=== PATIENT | male | born 1965 | race Caucasian/White ===

== ENCOUNTER 2016-12-03 09:56 | Emergency (ER) | payer OTHER ==
[~2016-12-03] VITALS: Ht 175.3 cm; Wt 54.4 kg
[~2016-12-03 09:56] MED LIST: AMLODIPINE BESY10 M1 PO; ASPIRIN EC81 M1 PO; ATORVASTATIN CA40 MG PO; CARTIA XT120 M1 PO; ECOTRIN81 MG PO; PERCOCET 325 MG1 TA2 PO; PERCOCET 5-3251 EACH PO
--- NOTE | 2016-12-03 10:06 | ED GENERAL ADULT ---
History of Present Illness General Chief Complaint: Abdominal Pain/Flank Pain Stated Complaint: ABD PAIN Source: patient Exam Limitations: no limitations Vital Signs & Intake/Output Vital Signs & Intake/Output Vital Signs Date Time Temp Pulse Resp B/P Pulse O2 O2 Flow FiO2 Ox Delivery Rate 12/03 1204 97.0 76 18 129/83 96 Room Air 12/03 0959 97.5 97 20 163/81 96 Room Air Allergies Coded Allergies: pineapple (HIVES 12/03/16) Uncoded Allergies: contrast dye (Mild, rash 12/03/16) Reconcile Medications Amlodipine Besylate (Amlodipine) 10 MG TAB 1 TAB PO DAILY BP (Reported) Aspirin (Ecotrin*) 81 MG TABLET.DR 1 TAB PO DAILY HEART HEALTH (Reported) Atorvastatin Calcium (Lipitor) 40 MG TAB 1 TAB PO DAILY CHOLESTEROL (Reported ) Diltiazem Hydrochloride (Diltiazem HCl) 120 MG C24 1 CAP PO DAILY HEART ( Reported) Gabapentin 300 MG CAPSULE 2 CAP PO BID PAIN (Reported) Gabapentin (Neurontin) 300 MG CAPSULE 1 CAP PO 1300 PAIN (Reported) Hydroxyzine Pamoate (Vistaril) 25 MG CAPSULE 1 CAP PO TID PRN RASH Lactobacillus Rhamnosus GG (Culturelle) 10 BILLION CELL CAPSULE 1 CAP PO DAILY GI (Reported) Oxycodone HCl/Acetaminophen (Percocet 5-325 MG Tablet) 5 MG-325 MG TABLET 1 TAB PO BID PRN PAIN Triage Note: PT TO ED FOR ABD PAIN. PT HAD AN OUT PATIENT CAT SCAN YESTERDAY FOR HIS ABD PAIN. PT WAS CALLED BY DR BIANCHI LAST NIGHT AND TOLD TO COME TO ED FOR ADMISSION FOR "TWISTED INTESTINE". PT WAS UNABLE TO COME TO ED LAST NIGHT. DENIES N/V/D. PT TOOK A PERCOCET AROUND 0600 THIS AM. Triage Nurses Notes Reviewed? yes Onset: Abrupt Duration: week(s): Timing: recent history HPI: 12/03/16 51-year-old male presents to the emergency department complaining of lower abdominal pain that has been ongoing for weeks. He says he's had the pain since his vascular bypass surgery. He takes Percocet for the pain. He was seen and evaluated by his primary care doctor or outpatient CT scan was done the patient was told to return emergently to the emergency department, as the CT results were shown below. The onset of the symptoms were abrupt, the duration has been for weeks, the severity is significant as his symptoms required him to come to the emergency department for care IMPRESSION: 1. 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 2. Small right renal calculus no obstruction. 3. 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 Clinical correlation and surgical consultation is recommended. If the patient's pain is worsening, patient should be further evaluated the emergency department. 4. Postoperative changes as noted. Results and recommendation were discussed with Dr Blanco at 1630 hrs on 12/02/2016. It was ascertained that the content and urgency of the report was understood at the time of direct communication. DICTATED BY: RIC SCHWAB MD DATE/TIME DICTATED:12/02/161600 MIDDLEWARE ADMINISTRATOR:MOLLY DATE/TIME TRANSCRIBED:12/02/161600 CONFIDENTIAL, DO NOT COPY WITHOUT APPROPRIATE AUTHORIZATION. <Electronically signed in Other Vendor System> SIGNED BY: RIC SCHWAB MD 163 Surgical consultation was requested. Past History Travel History Traveled to [place] past 21 day No Medical History Any Pertinent Medical History? 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 Surgical History Surgical History: low back Psychosocial History What is your primary language Bermudian Tobacco Use: Current Daily Use Daily Tobacco Use Amount/Type: => 5 Cigarettes daily ETOH Use: denies use Illicit Drug Use: denies illicit drug use Family History Hx Contributory? No Review of Systems Review of Systems Constitutional: Denies: fever. EENTM: Denies: visual changes. Respiratory: Denies: short of breath. Cardiovascular: Denies: chest pain. GI: Reports: abdominal pain. Genitourinary: Reports: no symptoms. Musculoskeletal: Reports: see HPI. Skin: Denies: rash. Neurological/Psychological: Reports: no symptoms. Hematologic/Endocrine: Reports: no symptoms. Physical Exam Physical Exam General Appearance: alert, awake, anxious, mild distress Head: atraumatic, normal appearance Eyes: Bilateral: normal appearance, PERRL, EOMI. Ears, Nose, Throat: normal pharynx, normal ENT inspection Neck: normal inspection, supple, full range of motion Respiratory: normal breath sounds, chest non-tender, no respiratory distress Cardiovascular: regular rate/rhythm Peripheral Pulses: 4+ radial (R), 4+ radial (L) Gastrointestinal: soft, non-tender Back: normal range of motion Extremities: normal inspection, normal range of motion, no edema Neurologic/Psych: no motor/sensory deficits, awake, alert, oriented x 3 Skin: intact, normal color, warm/dry Core Measures ACS in differential dx? No CVA/TIA Diagnosis: No Severe Sepsis Present: No Septic Shock Present: No Progress Differential Diagnoses I considered the following diagnoses in my evaluation of the patient: [Volvulus, intestinal obstruction, ischemic colitis] Plan of Care: Orders Procedure Date/time Status LIPASE 12/03 1058 Complete COMPREHENSIVE METABOLIC PANEL 12/03 1058 Complete CBC WITHOUT DIFFERENTIAL 12/03 1058 Complete AMYLASE 12/03 1058 Complete Laboratory Tests 12/03/16 1111: Anion Gap 8, Estimated GFR > 60, BUN/Creatinine Ratio 15.0, Glucose 87, Calcium 9.4, Total Bilirubin 1.9 H, AST 26, ALT 33, Alkaline Phosphatase 104, Total Protein 6.8, Albumin 4.2, Globulin 2.6, Albumin/Globulin Ratio 1.6, Amylase 48, Lipase 62, CBC w Diff MAN DIFF ORDERED, RBC 4.42 L, MCV 93.6, MCH 31.6 H, RDW 14.9 H, MPV 7.6, Gran % 89.6 H, Lymphocytes % 4.9 L, Monocytes % 2.4, Eosinophils % 2.9, Basophils % 0.2, Absolute Granulocytes 12.4 H, Absolute Lymphocytes 0.7 L, Absolute Monocytes 0.3, Absolute Eosinophils 0.4, Absolute Basophils 0, Platelet Estimate VERIFIED BY SMEAR, Anisocytosis 1+, PUBS MCHC 33.7 Initial ED EKG: none Departure Departure Disposition: HOME OR SELF CARE Condition: Stable Clinical Impression Primary Impression: Abdominal pain Referrals: MAYTE BIANCHI MD (PCP/Family) Departure Forms: Customer Survey General Discharge Information Prescriptions: Current Visit Scripts Hydroxyzine Pamoate (Vistaril) 1 CAP PO TID PRN RASH #20 CAP Comments 12/03/16 The patient was seen and evaluated by surgery. Abdomen soft and benign. Volvulus excluded clinically, patient is having bowel movements, no vomiting. Critical Care Note Critical Care Note Critical Care Time: non-applicable
[2016-12-03] MEDS ORDERED: CULTURELLE1 EACH PO (10:18)
[2016-12-03] MEDS ORDERED: GABAPENTIN300 M2 PO (10:19)
[2016-12-03] MEDS ORDERED: NEURONTIN300 M1 PO (10:19)
[2016-12-03 11:24] LABS: ABSOLUTE BASOPHIL COUNT 0 /CUMM (0.0-0.2); ABSOLUTE EOSINOPHIL COUNT 0.4 /CUMM (0.0-0.7); ABSOLUTE GRANULOCYTE CT 12.4 /CUMM (1.4-6.5); ABSOLUTE LYMPH COUNT 0.7 /CUMM (1.2-3.4); ABSOLUTE MONOCYTE COUNT 0.3 /CUMM (0.10-0.60); BASOPHIL % 0.2 % (0.0-2.0); EOSINOPHIL % 2.9 % (0-5); GRANULOCYTE % 89.6 % (42.2-75.2); HEMATOCRIT 41.4 % (42-52); MEAN CORPUSCULAR HGB 31.6 PG (27.0-31.0); MEAN CORPUSCULAR HGB CONC 33.7 G/DL (33.0-37.0); MEAN CORPUSCULAR VOLUME 93.6 FL (80.0-94.0); MEAN PLATELET VOLUME 7.6 FL (7.4-10.4); PLATELET COUNT 242 /CUMM (130-400); RBC DISTRIBUTION WIDTH 14.9 % (11.5-14.5); RED BLOOD CELL CT 4.42 /CUMM (4.70-6.10); WHITE BLOOD CELL COUNT 13.8 /CUMM (4.8-10.8)
[2016-12-03 12:04] VITALS: BP 129/83
--- NOTE | 2016-12-03 12:51 | Cons- General Surgery ---
General Information and HPI Consulting Request Date of Consult: 12/03/16 Requested By: md Jaquan History of Present Illness: Aked to evaluate patient with "possible voluvulus" on CT abdomen performed as outpt. Patient describes lack of appetite since his aortobifemoral bypass at [facility] 03/2016. Mild abdominal pain after meals, mostly left mid abdomen. No nausea or vomiting. Normal bowel function. No f/c/s. Main c/o is that of chronic back pain. Outpt CT angio of abdomen ordered by primary care physician two days ago. The results showed no vascular occlusive disease of the viscera, but concern for 'swirling' of the mesentery in low abd/pelvis. Patient denies active abdominal pain. Also c/o red rash over abdomen and back since IV contrast given for CT. Allergies/Medications Allergies: Coded Allergies: pineapple (HIVES 12/03/16) Uncoded Allergies: contrast dye (Mild, rash 12/03/16) Home Med List: Amlodipine Besylate (Amlodipine) 10 MG TAB 1 TAB PO DAILY BP (Reported) Aspirin (Ecotrin*) 81 MG TABLET.DR 1 TAB PO DAILY HEART HEALTH (Reported) Atorvastatin Calcium (Lipitor) 40 MG TAB 1 TAB PO DAILY CHOLESTEROL (Reported ) Diltiazem Hydrochloride (Diltiazem HCl) 120 MG C24 1 CAP PO DAILY HEART ( Reported) Gabapentin 300 MG CAPSULE 2 CAP PO BID PAIN (Reported) Gabapentin (Neurontin) 300 MG CAPSULE 1 CAP PO 1300 PAIN (Reported) Lactobacillus Rhamnosus GG (Culturelle) 10 BILLION CELL CAPSULE 1 CAP PO DAILY GI (Reported) Oxycodone HCl/Acetaminophen (Percocet 5-325 MG Tablet) 5 MG-325 MG TABLET 1 TAB PO BID PRN PAIN Past History Medical History Neurological: NONE EENT: NONE Cardiovascular: hypertension, hyperlipidemia, PVD Respiratory: NONE Gastrointestinal: NONE Hepatic: NONE Renal: NONE Musculoskeletal: NONE Psychiatric: NONE Endocrine: NONE Blood Disorders: NONE Cancer(s): 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 Surgical History Pertinent Surgical History: laminectomy, Aorto-Bifemoral bypass Psychosocial History Smoking Status: Current Everyday Smoker ETOH Use: denies use Illicit Drug Use: denies illicit drug use Employment History Retired? no Review of Systems Review of Systems: no f/c/s. mild postprandial abd pain per hpi. low back pain/instability. remainder 12pts neg. Exam & Diagnostic Data Vital Signs and I&O Vital Signs Date Time Temp Pulse Resp B/P Pulse O2 O2 Flow FiO2 Ox Delivery Rate 12/03 1204 97.0 76 18 129/83 96 Room Air 12/03 0959 97.5 97 20 163/81 96 Room Air Intake & Output 12/03 1600 12/03 0800 12/03 0000 12/02 1600 12/02 0800 12/02 0000 Intake Total 1000 Output Total Balance 1000 Intake, IV 1000 Patient 120 lb Weight Physical Exam: Gen: thin. smells of cigarrette smoke. nad. heent; anicteric, mmm, eomi chest; nt, normal excursion/effort abd; flat, nt. nd. small right inguinal hernia, reducible. ext; palp pulses. no edema. inguinal adenopathy Last 24 Hours of Labs: Laboratory Tests 12/03 1111 Chemistry Sodium (137 - 145 mmol/L) 135 L Potassium (3.5 - 5.1 mmol/L) 4.3 Chloride (98 - 107 mmol/L) 101 Carbon Dioxide (22 - 30 mmol/L) 26 Anion Gap (5 - 16) 8 BUN (9 - 20 mg/dL) 12 Creatinine (0.7 - 1.2 mg/dL) 0.8 Estimated GFR (>60 ml/min) > 60 BUN/Creatinine Ratio (7 - 25 %) 15.0 Glucose (65 - 99 mg/dL) 87 Calcium (8.4 - 10.2 mg/dL) 9.4 Total Bilirubin (0.2 - 1.3 mg/dL) 1.9 H AST (17 - 59 U/L) 26 ALT (21 - 72 U/L) 33 Alkaline Phosphatase (< 127 U/L) 104 Total Protein (6.3 - 8.2 g/dL) 6.8 Albumin (3.5 - 5.0 g/dL) 4.2 Globulin (1.9 - 4.2 gm/dL) 2.6 Albumin/Globulin Ratio (1.1 - 2.2 %) 1.6 Amylase (30 - 110 U/L) 48 Lipase (23 - 300 U/L) 62 Hematology CBC w Diff MAN DIFF ORDERED WBC (4.8 - 10.8 /CUMM) 13.8 H RBC (4.70 - 6.10 /CUMM) 4.42 L Hgb (14.0 - 18.0 G/DL) 14.0 Hct (42 - 52 %) 41.4 L MCV (80.0 - 94.0 FL) 93.6 MCH (27.0 - 31.0 PG) 31.6 H RDW (11.5 - 14.5 %) 14.9 H Plt Count (130 - 400 /CUMM) 242 MPV (7.4 - 10.4 FL) 7.6 Gran % (42.2 - 75.2 %) 89.6 H Lymphocytes % (20.5 - 51.1 %) 4.9 L Monocytes % (1.7 - 9.3 %) 2.4 Eosinophils % (0 - 5 %) 2.9 Basophils % (0.0 - 2.0 %) 0.2 Absolute Granulocytes (1.4 - 6.5 /CUMM) 12.4 H Segmented Neutrophils (42.2 - 75.2 %) Pending Absolute Lymphocytes (1.2 - 3.4 /CUMM) 0.7 L Absolute Monocytes (0.10 - 0.60 /CUMM) 0.3 Absolute Eosinophils (0.0 - 0.7 /CUMM) 0.4 Absolute Basophils (0.0 - 0.2 /CUMM) 0 PUBS MCHC (33.0 - 37.0 G/DL) 33.7 Imaging Results: CT 12/01/16 personally viewed. No visceral vascular occlusive disease. no obstruction. no bowel inflammatory changes Assessment/Plan Assessment/Plan Although there is mild 'swirling' of the distal small bowel mesentery on CT scan , it is normal variant. There is no proximal mesenteric twist to suggest volvulus. Furthermrore there is no abdominal pain or obstructive symptoms/ findings. No surgical intervention regarding the CT finding is warranted. It does not explain his lack of appetite. Recommend observation. Defer rx of IV contrast allergic reaction to ER physician. Copies To: MAYTE BIANCHI MD Consult Acknowledgment - Thank you for your consult request.
[2016-12-03] MEDS ORDERED: VISTARIL25 M1 PO (12:56)
== END 2016-12-03 13:00 ==
LOC: ERH 09:56
PROVIDERS: Emergency Medicine
DX: R10.30 Lower abdominal pain, unspecified (principal)
CPT/HCPCS: 96360

== ENCOUNTER 2017-04-21 17:06 | Emergency (ER) | payer OTHER ==
[~2017-04-21] VITALS: Ht 175.3 cm; Wt 54.4 kg
[~2017-04-21 17:06] MED LIST changes: +CULTURELLE1 EACH PO; +GABAPENTIN300 M2 PO; +NEURONTIN300 M1 PO; +VISTARIL25 M1 PO
[2017-04-21 17:21] VITALS: BP 139/81
[2017-04-21 17:40] LABS: ABSOLUTE BASOPHIL COUNT 0 /CUMM (0.0-0.2); ABSOLUTE EOSINOPHIL COUNT 0.6 /CUMM (0.0-0.7); ABSOLUTE GRANULOCYTE CT 6.1 /CUMM (1.4-6.5); ABSOLUTE LYMPH COUNT 2.7 /CUMM (1.2-3.4); BASOPHIL % 0.2 % (0.0-2.0); EOSINOPHIL % 6.2 % (0-5); HEMATOCRIT 37.3 % (42-52); MEAN CORPUSCULAR HGB CONC 33.1 G/DL (33.0-37.0); MEAN CORPUSCULAR VOLUME 93.6 FL (80.0-94.0); MEAN PLATELET VOLUME 7.7 FL (7.4-10.4); PLATELET COUNT 204 /CUMM (130-400); RBC DISTRIBUTION WIDTH 13.9 % (11.5-14.5); RED BLOOD CELL CT 3.98 /CUMM (4.70-6.10); WHITE BLOOD CELL COUNT 10.4 /CUMM (4.8-10.8)
--- NOTE | 2017-04-21 18:17 | ED NEURO DEFICIT/STROKE ---
History of Present Illness General Chief Complaint: General Adult Stated Complaint: PT DIZZY, LEFT ARM AND BACK OF LEGS ARE NUMBESS Source: patient Exam Limitations: no limitations Vital Signs & Intake/Output Vital Signs & Intake/Output Vital Signs Date Time Temp Pulse Resp B/P B/P Pulse O2 O2 Flow FiO2 Mean Ox Delivery Rate 04/21 1721 98.9 90 15 139/81 96 Room Air Room Air Allergies Coded Allergies: Iodinated Contrast- Oral and IV Dye (HIVES, RASH 04/21/17) pineapple (HIVES 04/21/17) Reconcile Medications Amlodipine Besylate 10 MG TABLET 1 TAB PO DAILY BP (Reported) Aspirin (Ecotrin*) 81 MG TABLET.DR 1 TAB PO DAILY HEART HEALTH (Reported) Atorvastatin Calcium 40 MG TABLET 1 TAB PO DAILY CHOLESTEROL (Reported) Dicyclomine HCl 10 MG CAPSULE 1 CAP PO PRN GI (Reported) Diltiazem HCl (Cartia Xt) 120 MG CAP.ER.24H 1 CAP PO DAILY HEART/BP (Reported ) Gabapentin 300 MG CAPSULE 2 CAP PO BID PAIN (Reported) Gabapentin (Neurontin) 300 MG CAPSULE 1 CAP PO 1300 PAIN (Reported) Triage Note: PT TO ED FOR C/C OF LIGHTHEADEDNESS, LEFT ARM AND LEG NUMBNESS. PT HAS PVD AND DOES HAVE CHRONIC NUMBNESS AND TINGLING, BUT TODAY IT GOT WORSE. L SIDED WEAKNESS NOTED, BUT PER PT THAT IS ALSO CHRONIC. NO OTHER NEURO DEFICITS NOTED IN TRIAGE. DENIES CHEST PAIN OR SOB. Triage Nurses Notes Reviewed? yes Onset: Abrupt Duration: hour(s): (FEW) Timing: multiple episodes today Severity: mild, moderate HPI: This is a 51-year-old male with history of hypertension, peripheral arterial disease, active smoker presents to the ER for chief complaint of not feeling well since 1:00. He states he feels he is looking into a tunnel. He was in the pool swimming at 1:00 [place] and cooperative started to feel slightly worse. No chest pain or shortness of breath. He has some chronic left arm weakness and numbness and numbness which is gotten worse. No history of stroke before. He states he has not followed up with his cardiac TEMPERATURE DENIES ANY TRAUMA. DENIES ANY HEADACHE. DENIES ANY DIFFICULTY WALKING OR SPEAKING. DENIES ANY DIFFICULTY SWALLOWING. Past History Travel History Traveled to [place] past 21 day No Medical History Any Pertinent Medical History? 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 Surgical History Surgical History: laminectomy, Aorto-Bifemoral bypass Psychosocial History What is your primary language Citizen Of [place] Tobacco Use: Current Daily Use Daily Tobacco Use Amount/Type: => 5 Cigarettes daily ETOH Use: denies use Illicit Drug Use: denies illicit drug use Family History Hx Contributory? No Review of Systems Review of Systems Constitutional: Reports: malaise, weakness. Denies: chills, fever. EENTM: Reports: double vision. Respiratory: Denies: cough, short of breath. Cardiovascular: Denies: chest pain, palpitations. GI: Denies: abdominal pain. Genitourinary: Reports: no symptoms. Musculoskeletal: Reports: no symptoms. Skin: Reports: no symptoms. Neurological/Psychological: Reports: see HPI (dizzy), anxiety. Hematologic/Endocrine: Denies: bruising, bleeding, polyuria, other. Immunologic/Allergic: Denies: splenectomy. All Other Systems: Reviewed and Negative Physical Exam Physical Exam General Appearance: alert, awake, anxious, mild distress, thin Head: atraumatic, normal appearance Eyes: Bilateral: normal appearance, PERRL, EOMI. Ears, Nose, Throat: normal ENT inspection, hearing grossly normal Neck: normal inspection, supple, full range of motion Respiratory: normal breath sounds, chest non-tender, no respiratory distress Cardiovascular: regular rate/rhythm Peripheral Pulses: 2+ radial (R), 2+ radial (L) Gastrointestinal: normal bowel sounds, soft, non-tender Extremities: normal range of motion Psychiatric: awake, alert, oriented x 3 Cranial Nerves: normal hearing, normal speech, PERRL Coordination/Gait: normal finger to nose, normal gait Motor/Sensory: no motor/sensory deficits Skin: intact, normal color, cyanosis Core Measures CVA/TIA Diagnosis: No Severe Sepsis Present: No Septic Shock Present: No Progress Differential Diagnosis: encephalitis, hypoglycemia, intracranial Hem., intracranial mass/tumor, migraine SEGOVIA, seizure disorder, stroke, dehydration, anxiety Plan of Care: Orders Procedure Date/time Status Add-on Test (ER Only) 04/21 1833 Active Add-on Test (ER Only) 04/21 182 Active URINE DRUGS OF ABUSE 04/21 182 Complete URINALYSIS 04/21 182 Complete LYME TITRE 04/21 1726 Active ETHANOL 04/21 1726 Complete TROPONIN LEVEL 04/21 171 Complete COMPREHENSIVE METABOLIC PANEL 04/21 171 Complete CBC WITHOUT DIFFERENTIAL 04/21 171 Complete EKG 04/21 1708 Active Laboratory Tests 04/21/17 1858: Urine Opiates Screen < 100.00, Methadone Screen 45, Barbiturate Screen < 60, Ur Phencyclidine Scrn < 6.00, Amphetamines Screen < 100, U Benzodiazepines Scrn < 85, Urine Cocaine Screen < 50, Urine Cannabis Screen < 5.00, Urine Color YEL, Urine Clarity CLEAR, Urine pH 6.0, Ur Specific Canadian <= 1.005, Urine Protein NEG, Urine Ketones NEG, Urine Nitrite NEG, Urine Bilirubin NEG, Urine Urobilinogen 0.2, Ur Leukocyte Esterase NEG, Ur Microscopic EXAM NOT REQUIRED, Urine Hemoglobin NEG, Urine Glucose NEG 04/21/17 1726: Anion Gap 10, Estimated GFR > 60, BUN/Creatinine Ratio 14.3, Glucose 94, Calcium 9.1, Total Bilirubin 0.7, AST 25, ALT 46, Alkaline Phosphatase 77, Troponin I < 0.01, Total Protein 6.3, Albumin 4.0, Globulin 2.3, Albumin/Globulin Ratio 1.7, CBC w Diff NO MAN DIFF REQ, RBC 3.98 L, MCV 93.6, MCH 31.0, RDW 13.9, MPV 7.7, Gran % 58.0, Lymphocytes % 26.0, Monocytes % 9.6 H, Eosinophils % 6.2 H, Basophils % 0.2, Absolute Granulocytes 6.1, Absolute Lymphocytes 2.7, Absolute Monocytes 1.0 H, Absolute Eosinophils 0.6, Absolute Basophils 0, PUBS MCHC 33.1 , Lyme Disease Antibody Pending, Serum Alcohol < 10.0 Diagnostic Imaging: Viewed by Me: CT Scan. Discussed w/RAD: CT Scan. Radiology Impression: PATIENT: BALTAZAR ABARCA PRESENT AGE: 51 PATIENT ACCOUNT NO: [id number] : 65 LOCATION: [facility] ORDERING PHYSICIAN: EBENEZER ROTHMAN MD SERVICE DATE: 06/14/17-1748 EXAM TYPE: CAT - CT HEAD WO IV CONTRAST EXAMINATION: CT HEAD WITHOUT CONTRAST CLINICAL INFORMATION: TIA. Rule out stroke. Left arm and leg tingling. COMPARISON: None TECHNIQUE: Contiguous axial imaging was performed from the skull base to vertex without intravenous administration of contrast. DLP: 614 mGy-cm FINDINGS: There is no evidence of acute intracranial hemorrhage or territorial infarction. No abnormal mass effect or midline shift is seen. Cardoza to white matter differentiation is well preserved. No extra-axial fluid collections are identified. The ventricles are normal in size. There is no abnormal attenuation within the brain parenchyma. The osseous structures and soft tissues are normal. The mastoid air cells are well aerated. There is mild to moderate mucosal thickening in the ethmoid sinus air cells. IMPRESSION: No acute intracranial pathology. DICTATED BY: TARAH GIBSON MD DATE/TIME DICTATED:04/21/171820 MEDICAL ACCOUNTING CLERK: MOLLY DATE/TIME TRANSCRIBED:04/21/171820 CONFIDENTIAL, DO NOT COPY WITHOUT APPROPRIATE AUTHORIZATION. <Electronically signed in Other Vendor System> SIGNED BY: TARAH GIBSON MD 04/21/171825 Initial ED EKG: NSR Departure Departure Time of Disposition: 1947 Disposition: HOME OR SELF CARE Condition: Stable Clinical Impression Primary Impression: Left arm numbness Referrals: DIEGO JONES MD (PCP/Family) Additional Instructions: Please follow-up with your doctor and lining vamper in the office. Workup in the ER was within normal limits. Return as needed. Departure Forms: Customer Survey General Discharge Information
--- NOTE | 2017-04-21 18:26 | CT SCAN REPORT ---
EXAMINATION: CT HEAD WITHOUT CONTRAST CLINICAL INFORMATION: TIA. Rule out stroke. Left arm and leg tingling. COMPARISON: None TECHNIQUE: Contiguous axial imaging was performed from the skull base to vertex without intravenous administration of contrast. DLP: 614 mGy-cm FINDINGS: There is no evidence of acute intracranial hemorrhage or territorial infarction. No abnormal mass effect or midline shift is seen. Cardoza to white matter differentiation is well preserved. No extra-axial fluid collections are identified. The ventricles are normal in size. There is no abnormal attenuation within the brain parenchyma. The osseous structures and soft tissues are normal. The mastoid air cells are well aerated. There is mild to moderate mucosal thickening in the ethmoid sinus air cells. IMPRESSION: No acute intracranial pathology.
[2017-04-21] MEDS ORDERED: DICYCLOMINE HCL10 M1 PO (19:17)
[2017-04-21] MEDS ORDERED: ATORVASTATIN CA40 M1 PO (19:18)
== END 2017-04-21 19:56 ==
LOC: ERH 17:06
PROVIDERS: Emergency Medicine
DX: R20.0 Anesthesia of skin (principal); R53.1 Weakness; I10 Essential (primary) hypertension; Z72.0 Tobacco use
CPT/HCPCS: 86618; 80307; 81003; 93005; 93010; G0480